=== PATIENT | male | born 1955 | race African-American/Black ===

== ENCOUNTER 2020-06-18 20:48 | Emergency (ER) | payer OTHER, SELFPAY ==
[2020-06-18] MEDS ORDERED: Lidocaine 2% w/Epinephrine 1:200K 20 ML VIAL ONE (22:46)
[2020-06-18] MEDS ORDERED: Boostrix 0.5 ML VIAL ONE (22:46)
[2020-06-18] MEDS ORDERED: CEFAZOLIN 1 GM VIAL ONE (22:59)
[2020-06-18] MEDS ORDERED: Sodium Chloride 0.9% 200 ML ONE (22:59)
[2020-06-18] MEDS ORDERED: Ondansetron PF 4 MG/2 ML Vial ONE (22:59)
[2020-06-18] MEDS ORDERED: Sodium Chloride 0.9% 1,000 ML ONE (22:59)
[2020-06-19 01:15] LABS: Anion Gap 17 mmol/L (10-20); CKMB 10.3 ng/mL (0-6.6); Carbon Dioxide 22 mmol/L (23-31); Chloride 104 mmol/L (98-107); Potassium 3.4 mmol/L (3.5-5.1); Sodium 140 mmol/L (136-145)
[2020-06-19 01:16] LABS: BUN (Urea Nitrogen) 11 mg/dL (8.4-25.7); Calc. Creatinine Clearance 0 mL/min (70-130); Calcium 8.8 mg/dL (7.8-10.44); Estimated GFR-MDRD Greater than 90; Glucose 97 mg/dL (80-115); Protein, Total 7.9 g/dL (5.8-8.1)
[2020-06-19 01:18] LABS: ALT (SGPT) 119 U/L (8-55); AST (SGOT) 135 U/L (5-34); Albumin 4.2 g/dL (3.4-4.8); Alkaline Phosphatase 60 U/L (40-110); Globulin 3.7 g/dL (2.4-3.5)
[2020-06-19 01:20] LABS: Alcohol 285 mg/dL (Less than 10)
[2020-06-19 01:21] LABS: Amphetamine Not Detected (NotDetected); Barbiturates Screen Not Detected (NotDetected); Benzodiazepine Screen Not Detected (NotDetected); Clarity Clear (Clear); Cocaine Metabolite Screen Not Detected (NotDetected); Medtox Control Line Valid? VALID (VALID); Methadone Not Detected (NotDetected); Methamphetamine Not Detected (NotDetected); Opiate Screen Not Detected (NotDetected); Oxycodone Screen Not Detected (NotDetected); Phencyclidine (PCP) Not Detected (NotDetected); Specific Gravity, Urine 1.005 (1.002-1.036); THC/Cannabinoid Screen Not Detected (NotDetected); Tricyclic Screen Not Detected (NotDetected)
[2020-06-19 01:22] LABS: Bilirubin Negative (Negative); Blood, Urine Negative (Negative); Glucose, Urine (Dipstick) Negative (Negative); Ketone, Urine Negative (Negative); Leukocyte Negative (Negative); Nitrite Negative (Negative); Protein, Urine (Dipstick) Negative (Neg-Trace); Urobilinogen 0.2 mg/dL (Less than 2); pH, Urine 5.5 (5.0-9.0)
[2020-06-19 01:23] LABS: Hemoglobin 17.7 g/dL (14.0-18.0); Red Blood Cell (RBC) Count 5.95 mill/uL (4.70-6.10); White Blood Cell (WBC) Count 7.4 thou/uL (4.8-10.8)
[2020-06-19 01:24] LABS: #Lymphocytes 3.4 thou/uL (1.20-3.40); %Basophils 1.7 % (0.0-1.0); %Eosinophils 2.5 % (0.0-10.0); %Lymphocytes 46.3 % (21.0-51.0); %Neutrophils 40.5 % (42.0-75.0); Mean Corpuscular HGB CONC 32.1 g/dL (32.0-36.0); Mean Corpuscular Hemoglobin 29.7 pg (27.0-31.0); Mean Corpuscular Volume 92.6 fL (78.0-98.0); Platelet Count 273 thou/uL (130-400); RBC Distribution Width 12.3 % (11.5-14.5)
[2020-06-19 01:25] LABS: #Basophils 0.1 thou/uL (0.0-0.2); #Eosinphils 0.2 thou/uL (0.0-0.7); #Monocytes 0.7 thou/uL (0.11-0.59)
== END 2020-06-18 23:57 ==
LOC: MADERS 20:48
DX: S01.511A Laceration without foreign body of lip, initial encounter (principal); F10.129 Alcohol abuse with intoxication, unspecified; I10 Essential (primary) hypertension; F17.210 Nicotine dependence, cigarettes, uncomplicated; Y09 Assault by unspecified means
CPT/HCPCS: 12011; 80053; 80306; 80307; 81003; 82553; 84484; 85025; 90471; 90715; 96365; 96375; J0690; J2405; J3490; J7050

== ENCOUNTER 2021-12-16 11:26 | Emergency (ER) | payer MEDICARE, OTHER ==
[2021-12-16] MEDS ORDERED: Ibuprofen 800 MG TAB ONE (12:42)
== END 2021-12-16 12:47 | disposition home or self-care (01) ==
LOC: MADERS 11:26
DX: M25.461 Effusion, right knee (principal); R03.0 Elevated blood-pressure reading, without diagnosis of hypertension; F17.210 Nicotine dependence, cigarettes, uncomplicated